=== PATIENT | male | born 1985 | race American Indian/Alaskan Native ===

== ENCOUNTER 2017-04-17 10:44 | Emergency (ER) | payer SELFPAY ==
[2017-04-17] MEDS ORDERED: NACL 0.9% 1000 ML 2,000 ML ONE (10:52)
[2017-04-17] MEDS ORDERED: ANCEF ONE (10:53)
[2017-04-17] MEDS ORDERED: ZOFRAN IV ONE ×2 (10:53→11:27)
[2017-04-17] MEDS ORDERED: DILAUDID IV ONE ×3 (10:53→11:57)
[2017-04-17] MEDS ORDERED: NACL 0.9% 1000 ML 2,000 ML IV ONE (10:53)
[2017-04-17] MEDS ORDERED: DILAUDID ONE (10:53)
[2017-04-17] MEDS ORDERED: ZOFRAN ONE (10:54)
[2017-04-17] MEDS ORDERED: NACL 0.9% 0 ML ONE (10:54)
[2017-04-17] MEDS ORDERED: WATER FOR INJ (PF) 10 ML ONE (10:55)
[2017-04-17] MEDS ORDERED: ceFAZolin 1 GM in NACL 0.9% 20 ML IV SCH (11:00)
[2017-04-17 11:01] LABS: Hematocrit 46.7 % (35.5-45.6); Hemoglobin 15.2 gm/dl (11.8-15.2); Mean Corpuscular HGB Conc 33 % (32-34); Mean Corpuscular Hemoglobin 28 pg (28-32); Mean Corpuscular Volume 87 fl (84-94); Platelet Count 235 K/mm3 (140-440); Red Blood Count 5.36 M/mm3 (3.65-5.03); Red Cell Distribution Width 13.6 % (13.2-15.2); White Blood Count 13.9 K/mm3 (4.5-11.0)
[2017-04-17] MEDS ORDERED: BOOSTRIX IM ONE (11:01)
[2017-04-17 11:11] LABS: BUN/Creatinine Ratio 13; Blood Urea Nitrogen 15 mg/dL (9-20); Calcium 8.8 mg/dL (8.4-10.2); Glucose 142 mg/dL (75-100); Potassium 3.5 mmol/L (3.6-5.0); Sodium 140 mmol/L (137-145)
[2017-04-17 11:14] LABS: INR 1.11 (0.87-1.13)
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
[2017-04-17 11:15] LABS: Anion Gap 37 mmol/L; Carbon Dioxide 9 mmol/L (22-30); Partial Thromboplastin Time 27.3 Sec. (24.2-36.6)
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
[2017-04-17 12:02] VITALS: BP 114/58
[2017-04-17 12:43] LABS: Basophils % (Manual) 0 % (0.0-1.8); Blastocytes % (Manual) 0 %; Diff Status Complete; Platelet Estimate Consistent w Auto; RBC Morphology Normal
== END 2017-04-17 12:00 | disposition other institution (70) ==
LOC: ED 10:44
DX: S31.109A Unspecified open wound of abdominal wall, unspecified quadrant without penetration into peritoneal cavity, initial encounter (principal); W34.00XA Accidental discharge from unspecified firearms or gun, initial encounter; Y93.89 Activity, other specified; Y92.89 Other specified places as the place of occurrence of the external cause; Y99.8 Other external cause status
CPT/HCPCS: 36415; 71010; 74000; 80048; 85007; 85025; 85610; 85730; 86850; 86900; 86901; 90471; 90715; 96374; 96375; 96376; 99285; J0690; J1170; J2405; J7030